=== PATIENT | male | born 1960 | race Caucasian/White ===

== ENCOUNTER 2018-12-03 06:45 | Outpatient (CLI) | payer OTHER | END 2018-12-03 06:46 | disposition critical access hospital (66) | LOC: EMS 06:45 | PROVIDERS: ATTEND Surgery | DX: S28.0XXA Crushed chest, initial encounter (principal); W23.0XXA Caught, crushed, jammed, or pinched between moving objects, initial encounter; Y92.69 Other specified industrial and construction area as the place of occurrence of the external cause; Y99.0 Civilian activity done for income or pay | CPT/HCPCS: A0425; A0427 ==

== ENCOUNTER 2018-12-03 07:02 | Emergency (ER) | payer OTHER ==
[2018-12-03] MEDS ORDERED: SODIUM CHLORIDE 0.9% 1,000 ML IV ONE (07:15)
[2018-12-03 07:18] LABS: BASOPHILS # (AUTO) 0.1 10^3/uL (0.0-0.1); BASOPHILS % (AUTO) 0.4 %; EOSINOPHILS # (AUTO) 1.1 10^3/uL (0.0-0.7); EOSINOPHILS % (AUTO) 3.5 %; HGB - HEMOGLOBIN 16.1 g/dL (14.0-18.0); LYMPHOCYTES # (AUTO) 5.2 10^3/uL (1.5-3.5); LYMPHOCYTES % (AUTO) 16.9 %; MEAN CORPUSCULAR HEMOGLOBIN 32.6 pg (27.0-31.0); MEAN CORPUSCULAR HGB CONC 33.9 g/dL (32.0-36.0); MEAN CORPUSCULAR VOLUME 96.2 fL (80.0-94.0); MEAN PLATELET VOLUME 10.1 fL (7.4-11.4); MONOCYTES # (AUTO) 1.7 10^3/uL (0.0-1.0); MONOCYTES % (AUTO) 5.4 %; NEUTROPHILS # (AUTO) 21.9 10^3/uL (1.5-6.6); PLT - PLATELET COUNT 275 10^3/uL (130-450); RED BLOOD COUNT 4.94 10^6/uL (4.70-6.10); RED CELL DISTRIBUTION WIDTH 11.9 % (12.0-15.0); WHITE BLOOD COUNT 30.8 x10^3/uL (4.8-10.8)
[2018-12-03] MEDS ORDERED: IOVERSOL 320 100 ML VIAL IVP ONE ×2 (07:28→15:51)
[2018-12-03] MEDS ORDERED: fentaNYL 100 MCG/2 ML VIAL IVP STA (07:29)
--- NOTE | 2018-12-03 07:29 | ED Physician Documentation ---
PD HPI MAJOR TRAUMA - Stated complaint Stated Complaint: CRUSH INJURY - Chief complaint Chief Complaint: Trauma Ch/Bk - History obtained from History obtained from: Patient, EMS - History of Present Illness Mechanism of injury: Blow Where injury occurred: Work Timing - onset: Today Injury(ies) location: Chest Quality of pain: Pain Associated symptoms: No: LOC, AMS, Amnesia Symptoms improve with: Meds Worsens with: Movement, Palpation Similar symptoms before: Has not had sx before Recently seen: Not recently seen - Additional information Additional information: 58-year-old male who was on a platform getting ready to clean out the bed of an asphalt truck when the truck began to move. He jumped down off the platform try to get into the truck, and the door of the truck caught his right chest against an I-beam. Review of Systems Constitutional: denies: Fever Eyes: denies: Decreased vision Ears: denies: Ear pain Nose: reports: Congestion Throat: denies: Sore throat Respiratory: reports: Cough (phlem for several weeks) GI: denies: Nausea, Vomiting, Constipation, Diarrhea Musculoskeletal: reports: Back pain, Extremity pain (RUE). denies: Neck pain Neurologic: reports: Numbness (RUE). denies: Generalized weakness, Focal weakness PD PAST MEDICAL HISTORY - Past Medical History Cardiovascular: Hypertension Respiratory: None Endocrine/Autoimmune: Type 2 diabetes GI: None : None HEENT: None Psych: None Musculoskeletal: None Derm: None - Past Surgical History General: Hiatal hernia repair - Present Medications Home Medications: Ambulatory Orders Medication Instructions Recorded Confirmed Home Medications Unobtainable 12/03/18 12/03/18 [HOME MEDICATIONS UNOBTAINABLE] - Allergies Allergies/Adverse Reactions: Allergies Allergy/AdvReac Type Severity Reaction Status Date / Time No Known Drug Allergies Allergy Verified 12/03/18 07:08 - Social History Does the pt smoke?: No Smoking Status: Never smoker PD ED PE NORMAL - Vitals Vital signs reviewed: Yes (tachy and hypertensive mild hypoxia) - General General: Alert and oriented X 3, Well developed/nourished, Other (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 ) - Neck Neck: Supple, no meningeal sign, No bony TTP - Cardiac Cardiac: No murmur, Other (tachy to 100) - Respiratory Respiratory: Other (shallow resp with clear sounds anteriorly bilat) - Abdomen Abdomen: Soft, Non tender, Other (large abdomen) - Back Back: No CVA TTP, No spinal TTP - Derm Derm: Normal color, Warm and dry, No rash - Extremities Extremities: No deformity, No edema - Neuro Neuro: Alert and oriented X 3, electronic tech 2-12 intact, No motor deficit, No sensory deficit, Normal speech Eye Opening: Spontaneous Motor: Obeys Commands Verbal: Oriented GCS Score: 15 - Psych Psych: Normal mood, Normal affect Results - Vitals Vitals: Vital Signs - 24 hr 12/03/18 12/03/18 12/03/18 07:04 07:14 07:31 Temperature 36.5 C Heart Rate 103 H 103 H 101 H Respiratory 24 27 H 24 Rate Blood Pressure 146/105 H 142/93 H 151/83 H O2 Saturation 92 90 L 88 L 12/03/18 12/03/18 12/03/18 07:38 07:44 07:48 Temperature Heart Rate 100 96 100 Respiratory 25 H 26 H 20 Rate Blood Pressure 177/85 H 149/85 H 151/92 H O2 Saturation 95 96 96 12/03/18 12/03/18 12/03/18 08:03 08:18 08:33 Temperature Heart Rate 100 97 107 H Respiratory 25 H 24 27 H Rate Blood Pressure 140/80 H 139/82 H 135/78 H O2 Saturation 94 97 97 Oxygen O2 Source Non-rebreather mask Oxygen Flow Rate 6 - Labs Labs: Laboratory Tests 12/03/18 12/03/18 07:11 07:11 WBC 30.8 H RBC 4.94 Hgb 16.1 Hct 47.5 MCV 96.2 H MCH 32.6 H MCHC 33.9 RDW 11.9 L Plt Count 275 MPV 10.1 Neut # (Auto) 21.9 H Lymph # (Auto) 5.2 H [place] # (Auto) 1.7 H Eos # (Auto) 1.1 H Baso # (Auto) 0.1 Absolute Nucleated RBC 0.00 Nucleated RBC % 0.0 Manual Slide Review Indicated RBC Morph Micro Appear 1+ ANISOCYTOSIS Sodium 138 Potassium 3.8 Chloride 103 Carbon Dioxide 23 Anion Gap 12.0 BUN 19 Creatinine 1.0 Estimated GFR (MDRD) 76 L Glucose 324 H Calcium 8.7 Total Bilirubin 1.5 H AST 51 H ALT 58 Alkaline Phosphatase 51 Total Protein 6.8 Albumin 4.0 Globulin 2.8 Albumin/Globulin Ratio 1.4 Lipase 36 - Rads (name of study) chest Radiology: Prelim report reviewed, EMP read indepedently, See rad report (Impression: 1. Multiple acute lateral right rib fractures. 2 No radiographically apparent pleural effusion or pneumothorax. There is subcutaneous emphysema in the right lateral chest wall. Low lung volumes. 3 There are streaky opacities at the bilateral lung bases, which may be due to lateral atelectasis, contusion, or infiltrate.) Chest CT Radiology: Prelim report reviewed (Impression: 1. Small right hemopneumothorax. 2 Patchy opacities at the right lung base likely represent a combination of pulmonary contusion and atelectasis. 3 There are multiple acute displaced right rib fractures as described above. There are also multiple acute nondisplaced left sided rib fractures, there is no left-sided pleural effusion or pneumothorax), EMP read indepedently, See rad report CT abd/pel Radiology: Prelim report reviewed (Impression: 1. No acute traumatic abnormality in the abdomen or pelvis. No free air or free fluid.[address] report for description of multiple acute bilateral rib fractures and small right hemopneumothorax.), EMP read indepedently, See rad report PD MEDICAL DECISION MAKING - ED course Complexity details: reviewed old records, reviewed results, re-evaluated patient, considered differential, d/w patient, d/w family, d/w oracle database consultant ([facility]) ED course: 58 y/o male with crush injury to the right chest with multiple rib fractures and small pneumo with sub-Q air, fractured scapula and bilateral pulmonary contusions. Trauma team activated patient maintains airway breathing is improved with use of pain medication and pulse and blood pressure are stable. He is currently stable for transport. The [place] [facility] [place] contacted shortly after arrival of the patient and Dr. Rhoda Quinn will accept the patient in transfer. Dr. Herring surgeon here evaluation: provide pain relief for breathing. Consideration for a chest tube with <10% pneumo conservative measures recommended. He has a cough the past several weeks and mild inflammation in the TM's bilat. Departure - Departure Disposition: 02 Transfer Acute Care Hosp Clinical Impression: Fracture of scapula Qualifiers: Encounter type: initial encounter Scapula location: unspecified part of scapula Fracture type: closed Laterality: right Qualified Code(s): S42.101A - Fracture of unspecified part of scapula, right shoulder, initial encounter for closed fracture Closed flail chest Qualifiers: Encounter type: initial encounter Qualified Code(s): S22.5XXA - Flail chest, initial encounter for closed fracture Contusion of chest wall Qualifiers: Encounter type: initial encounter Laterality: right Qualified Code(s): S20.211A - Contusion of right front wall of thorax, initial encounter Traumatic pneumohemothorax Qualifiers: Encounter type: initial encounter Qualified Code(s): S27.2XXA - Traumatic hemopneumothorax, initial encounter Condition: Serious
[2018-12-03 07:35] LABS: RBC MORPHOLOGY (MULTIPLE) 1+ ANISOCYTOSIS (NORMAL)
[2018-12-03 07:36] LABS: ALBUMIN/GLOBULIN RATIO 1.4 (1.0-2.2); BILIRUBIN,TOTAL 1.5 mg/dL (0.2-1.0); CALCIUM 8.7 mg/dL (8.5-10.3); TOTAL PROTEIN 6.8 g/dL (6.7-8.2)
[2018-12-03] MEDS ORDERED: fentaNYL 100 MCG/2 ML VIAL ONE (07:41)
[2018-12-03] MEDS ORDERED: KETOROLAC 30 MG/ML VIAL IVP STA (07:42)
--- NOTE | 2018-12-03 07:43 | XRAY Report ---
Reason: chest pain, injury right chest Procedure Date: 12/03/2018 Accession Number: [id number] / [id number] Procedure: XR - Chest 1 View X-Ray CPT Code: 32369 FULL RESULT: EXAM: CHEST RADIOGRAPHY EXAM DATE: 12/03/2018 07:21 AM. CLINICAL HISTORY: Chest pain, injury right chest. COMPARISON: CHEST W/ 12/03/2018 7:23 AM. TECHNIQUE: 1 view. FINDINGS: Lungs/Pleura: Lung volumes are low. No definite pleural effusion or pneumothorax visualized. There are streaky opacities at bilateral lung bases. Mediastinum: Within exam limitations, the cardiomediastinal contour is normal. There is atherosclerotic calcification of the aortic arch. Other: There are acute mildly displaced rib fractures of the right lateral fourth, fifth, sixth, and seventh ribs. There is subcutaneous emphysema in the right lateral chest wall. IMPRESSION: 1. Multiple acute right lateral rib fractures. 2. No radiographically apparent pleural effusion or pneumothorax. There is subcutaneous emphysema in the right lateral chest wall. 3. Low lung volumes. There are streaky opacities at the bilateral lung bases, which may be due to atelectasis, contusion, or infiltrate. DARVINA The call report notification system was initiated by Dr. Piotr Govea at 07:42 AM on 12/03/2018. ADDENDUM: 12/03/18 07:54 The above call report findings were discussed with Dr. Sotomayor by Dr. Piotr Govea at 07:43 AM on 12/03/2018.
--- NOTE | 2018-12-03 07:59 | CT Report ---
Reason: crush of chest right Procedure Date: 12/03/2018 Accession Number: [id number] / [id number] Procedure: CT - CHEST W CPT Code: FULL RESULT: EXAM: CT CHEST EXAM DATE: 12/03/2018 07:30 AM. CLINICAL HISTORY: Crush of chest right. COMPARISONS: CHEST 1 VIEW 12/03/2018 6:54 AM ABDOMEN/PELVIS W/ 12/03/2018 7:23 AM. TECHNIQUE: Routine helical CT imaging was performed through the chest. IV contrast: 100 cc Optiray 320. Reconstructions: Coronal and sagittal. In accordance with CT protocol optimization, one or more of the following dose reduction techniques were utilized for this exam: automated exposure control, adjustment of mA and/or KV based on patient size, or use of iterative reconstructive technique. FINDINGS: Lungs/Pleura: There is a small right anterior pneumothorax. Pleural separation measures approximately 14 mm near the right lung base (series 4 image 44). There is a small amount of right pleural fluid with density suggestive of blood products. No left-sided pleural effusion or left-sided pneumothorax. There are patchy opacities at the right lung base which likely represent a combination of pulmonary contusion and atelectasis. There is mild dependent atelectasis at the left lung base. Mediastinum: No adenopathy or masses. The heart and great vessels are normal. Coronary artery calcifications are present. There is mild atherosclerotic calcification at the aortic arch. Bones: There are multiple acute displaced right rib fractures. These include right anterior third rib, right lateral fourth rib, right lateral fifth rib, right lateral sixth rib, posterior lateral seventh rib, posterior lateral eighth rib, posterior ninth rib, and posterior lateral 10th rib fractures. There are acute nondisplaced fractures of the left lateral fourth rib, left lateral fifth rib, left lateral sixth rib, left lateral seventh rib and left posterior ninth rib. The other visualized bones appear intact. Visualized Abdomen: Unremarkable. Please see separately reported CT of the abdomen and pelvis for additional evaluation. Other: There is soft tissue gas in the right lateral chest wall. IMPRESSION: 1. Small right hemopneumothorax. 2. Patchy opacities at the right lung base likely represent a combination of pulmonary contusion and atelectasis. 3. There are multiple acute displaced right rib fractures, as described above. 4. There are also multiple acute nondisplaced left-sided rib fractures. There is no left-sided pleural effusion or pneumothorax. RADIA The above call report findings of acute displaced right-sided rib fractures and small right pneumothorax with pleural fluid were discussed with Jacob Sotomayor by Dr. Piotr Govea at 07:43 AM on 12/03/2018.
--- NOTE | 2018-12-03 08:05 | CT Report ---
Reason: crush of right chest Procedure Date: 12/03/2018 Accession Number: [id number] / [id number] Procedure: CT - Abdomen/Pelvis W CPT Code: FULL RESULT: EXAM: CT ABDOMEN AND PELVIS EXAM DATE: 12/03/2018 07:30 AM. CLINICAL HISTORY: Crush injury of right chest. COMPARISONS: CHEST W/ 12/03/2018 7:23 AM CHEST 1 VIEW 12/03/2018 6:54 AM. TECHNIQUE: Routine helical CT imaging was performed through the abdomen and pelvis. IV contrast: 100 cc Optiray 320. Enteric contrast: No. Reconstructions: Coronal and sagittal. In accordance with CT protocol optimization, one or more of the following dose reduction techniques were utilized for this exam: automated exposure control, adjustment of mA and/or KV based on patient size, or use of iterative reconstructive technique. FINDINGS: Lung Bases: As seen on chest CT, there are multiple acute displaced right-sided rib fractures and acute nondisplaced left-sided rib fractures. There is a small amount of right pleural fluid and small right anterior pneumothorax. There are patchy opacities at the bilateral lung bases, right greater than left. Liver: Normal. No masses. No traumatic abnormality. Gallbladder/Bile Ducts: Unremarkable. Spleen: Normal. Pancreas: Normal. Adrenal Glands: Normal. Kidneys: Normal. No masses or hydronephrosis. Peritoneal Cavity/Bowel: Normal. No free fluid, free air or adenopathy. No masses or acute inflammatory process. The appendix is well visualized and normal. Pelvic Organs: Normal. The bladder and visualized pelvic organs are within normal limits. Vasculature: No aneurysms or other significant abnormality. Bones: Please see chest CT report for description of multiple bilateral acute rib fractures. The other visualized bones appear intact. There are mild to moderate degenerative disk changes of the lumbar spine. There are mild degenerative facet changes of the lower lumbar spine. There is grade 1 retrolisthesis of L2 on L3 measuring 4 mm and grade 1 retrolisthesis of L3 on L4 measuring 4 mm. There is probable mild central canal narrowing and moderate bony neural foraminal narrowing at multiple levels in the lumbar spine. Other: There is a small fat-containing left inguinal hernia. IMPRESSION: 1. No acute traumatic abnormality in the abdomen or pelvis. No free air or free fluid. 2. Please see chest CT report for description of multiple acute bilateral rib fractures and small right hemopneumothorax. RADIA
--- NOTE | 2018-12-03 08:11 | CONSULTATION NOTE ---
Referring Provider Name of Referring Provider:: Dr. Jacob Sotomayor Consult Date: 12/03/18 Chief Complaint - Chief Complaint Chief Complaint: Crush injury to chest primarily right, difficulty breathing History of Present Illness - Admitted From Admitted From:: Not admitted in ED - History Obtained From Records Reviewed: Yes History obtained from: Patient and Dr. Sotomyaor Exam Limitations: None - History of Present Illness HPI Comment/Other: This is a very pleasant 58-year-old male who presented to our emergency department emergently after he was crushed between a I-beam and a dump truck. The patient was on a rail when he noticed the dump truck break had not been set and the dump truck was rolling back. The patient attempted to get into the cabin of the truck to set the brake but ended up getting crushed between the door and the I-beam. There is no loss of consciousness. The patient primarily complains of pain when breathing and the inability to take a deep breath because of the pain. He has no abdominal or pelvic complaints. He has some tingling in his right arm and fingers. He is able to move all extremities well and without difficulty. He is able to lift both arms above his head. He does take diabetic medication and blood pressure medication but the exact prescriptions and doses are not available. I believe the diabetic medication is metformin. History - Past Medical History Cardiovascular: reports: Hypertension Respiratory: reports: None Endocrine/Autoimmune: reports: Type 2 diabetes GI: reports: None : reports: None HEENT: reports: None Psych: reports: None Musculoskeletal: reports: None Derm: reports: None MRSA Hx?: No - Past Surgical History General: reports: Hiatal hernia repair Meds/Allgy - Home Medications Home Medications: Ambulatory Orders Medication Instructions Recorded Confirmed Home Medications Unobtainable 12/03/18 12/03/18 [HOME MEDICATIONS UNOBTAINABLE] - Allergies Allergies/Adverse Reactions: Allergies Allergy/AdvReac Type Severity Reaction Status Date / Time No Known Drug Allergies Allergy Verified 12/03/18 07:08 Review of Systems - Constitutional Constitutional: denies: Fatigue, Fever, Chills - Eyes Eyes: denies: Pain - Ears, Nose & Throat Ears, Nose & Throat: denies: Ear pain - Cardiovascular Cariovascular: denies: Irregular heart rate - Respiratory Respiratory: denies: Cough, Sputum production - Gastrointestinal Gastrointestinal: denies: Abdominal pain - Genitourinary Genitourinary: denies: Dysuria - Musculoskeletal Musculoskeletal: reports: Back pain - Integumentary Integumentary: denies: Rash - Neurological Neurological: denies: General weakness, Focal weakness - Psychiatric Psychiatric: denies: Depression, Anxiety Exam - Vital Signs Reviewed Vital Signs: Yes Vital Signs: Vital Signs x48h Temp Pulse Resp BP Pulse Ox 12/03/18 08:03 100 25 H 140/80 H 94 12/03/18 07:48 100 20 151/92 H 96 12/03/18 07:44 96 26 H 149/85 H 96 12/03/18 07:38 100 25 H 177/85 H 95 12/03/18 07:31 101 H 24 151/83 H 88 L 12/03/18 07:14 103 H 27 H 142/93 H 90 L 12/03/18 07:04 36.5 C 103 H 24 146/105 H 92 - Physical Exam General Appearance: positive: Mild distress, Moderate distress Eyes Bilateral: positive: Conjunctivae nml, No scleral icterus ENT: positive: Dry mucous membranes Neck: positive: Trachea midline. negative: Carotid bruit, Tracheal deviation Respiratory: positive: Other (Shallow breathing with pain on the right side of his chest. The pain is located primarily posterior laterally. Crepitus is present.). negative: Chest non-tender, No respiratory distress Cardiovascular: positive: Tachycardia (Secondary to chest pain due to broken ribs.). negative: JVD present, Systolic murmur Abdomen: positive: Non-tender, No organomegaly, No distention, Abnml bowel sounds, Other (Obese.) Skin: positive: Color nml, Diaphoresis, Other (Abrasion to left forearm, dressed . Abrasion to right elbow.) Extremities: positive: Non-tender, Full ROM, Nml appearance Neurologic/Psychiatric: positive: Oriented x3, Motor nml, Mood/affect nml. negative: Sensation nml (Says he has some tingling like when his legs go to sleep in his right arm and hand but has complete sensation to soft and deep touch.) Conclusion/Plan - Diagnosis Diagnosis: Multiple right rib fractures including a flail segment, left rib fracture (at least one nondisplaced) with pulmonary contusion bilaterally. Very small pneumothorax. Very small hemothorax. Broken right scapula. - Plan Plan: As per protocol regarding multiple rib fractures transfer to higher level of care. [facility] is the [facility] recipient. Currently, the pa tieshruthi does not require intubation nor tube thoracostomy but with a pending helicopter flight this may be requested. The patient's symptoms are not due to the very small hemopneumothorax but rather the rib fractures and control of his pain. I expect that pain control will be an issue as well the pulmonary contusion. Fixation of the ribs may be desirable to help with pain and to help with chest wall movement. The plan was discussed with the patient his and I believe his daughter. Over 60 minutes of [id number] time spent with the patient, the majority of which was spent in discussion, coordination of care, and completion of the requisite paperwork - Lab Results Lab results reviewed: Yes Fish Bones: 12/03/18 07:11 12/03/18 07:11 - Diagnostic Imaging Results Diagnostic Imaging Results: positive: Read independently
[2018-12-03 08:34] VITALS: BP 135/78
== END 2018-12-03 08:52 | disposition short-term general hospital (02) ==
LOC: EDUNIT# → ED 07:02
DX: S27.2XXA Traumatic hemopneumothorax, initial encounter (principal); S22.5XXA Flail chest, initial encounter for closed fracture; S42.101A Fracture of unspecified part of scapula, right shoulder, initial encounter for closed fracture; S20.211A Contusion of right front wall of thorax, initial encounter; S27.322A Contusion of lung, bilateral, initial encounter; V85.4XXA Person injured while boarding or alighting from special construction vehicle, initial encounter; Y93.89 Activity, other specified; Y99.0 Civilian activity done for income or pay; I10 Essential (primary) hypertension; E11.9 Type 2 diabetes mellitus without complications
CPT/HCPCS: 36415; 71045; 71260; 74177; 80053; 83690; 85025; 86850; 86900; 86901; 96361; 96374; 96375; 99284; 99285; Q9967

== ENCOUNTER 2019-01-21 10:14 | Outpatient (CLI) | payer OTHER ==
--- NOTE | 2019-01-21 15:02 | XRAY Report ---
Reason: Multi trauma f/u Procedure Date: 01/21/2019 Accession Number: [id number] / [id number] Procedure: XR - Tib/Fib RT CPT Code: Final Report FULL RESULT: EXAM: RIGHT TIBIA/FIBULA RADIOGRAPHY EXAM DATE: 01/21/2019 10:31 AM. CLINICAL HISTORY: Multi trauma f/u. COMPARISON: None. TECHNIQUE: 2 views. FINDINGS: Bones: Normal. No fracture or bone lesion. Joints: Normal alignment of the knee and ankle joints. Degenerative arthritis is noted. Soft Tissues: Mild diffuse soft tissue swelling in the calf. IMPRESSION: None. No acute fracture or dislocation evident in the tibia or fibula. RADIA
== END 2019-01-21 10:15 | disposition home or self-care (01) ==
LOC: DI 10:14
PROVIDERS: ATTEND Family Medicine
DX: S80.11XA Contusion of right lower leg, initial encounter (principal)

== ENCOUNTER 2022-06-11 07:40 | Outpatient (CLI) | payer OTHER ==
--- NOTE | 2022-06-11 09:33 | XRAY Report ---
PROCEDURE: Chest 2 View X-Ray INDICATIONS: SHORTNESS OF BREATH TECHNIQUE: 2 views of the chest were acquired. COMPARISON: None. FINDINGS: Surgical changes and devices: Surgical fusion of the ribs. Lungs and pleura: Trace left pleural effusion. Mediastinum: Mediastinal contours are normal. Heart size is normal. Bones and chest wall: No suspicious bony abnormalities. Soft tissues appear unremarkable. IMPRESSION: Trace left pleural effusion. Reviewed by: Daniel Vargas on 06/11/2022 9:32 AM PDT Approved by: Daniel Vargas on 06/11/2022 9:32 AM PDT Station ID: [id number]
== END 2022-06-11 07:41 | disposition home or self-care (01) ==
LOC: DI 07:40
PROVIDERS: ATTEND Physician Assistant
DX: R60.9 Edema, unspecified (principal); J90 Pleural effusion, not elsewhere classified

== ENCOUNTER 2022-07-04 16:00 | Outpatient (CLI) | payer OTHER | END 2022-07-04 16:01 | disposition home or self-care (01) | LOC: RT 16:00 | PROVIDERS: ATTEND Physician Assistant | DX: R06.02 Shortness of breath (principal); Z87.81 Personal history of (healed) traumatic fracture | CPT/HCPCS: 94010; 94727; 94729 ==

== ENCOUNTER 2022-07-23 12:15 | Emergency (ER) | payer OTHER ==
--- OUTSIDE RECORDS SUMMARY | 2022-07-23 12:55 | EXTERNAL MEDICAL SUMMARY RPT | Continuity of Care Document ---
:1960 Author Organization [facility] Address [address] [place] [address] Phone Care Team Providers Name Role Phone Unavailable Unavailable Unavailable Rafa Solo Md Unavailable Unavailable Sarahy Vidales Ma Unavailable Unavailable Guerda Cole, Kaylin Jackson Unavailable Unavailable Sarahy Vidales Ma Unavailable Unavailable Allergies No information. Encounters No information. Functional Status No information. Immunizations No information. Medications date description facility 2022-07-09 00:00 sodium,potassium,mag sulfates All 2022-07-09 00:00 sodium,potassium,mag sulfates All 2022-07-09 00:00 sodium,potassium,mag sulfates All 2022-07-09 00:00 sodium,potassium,mag sulfates All 2022-07-09 00:00 sodium,potassium,mag sulfates All 2022-07-09 00:00 sodium,potassium,mag sulfates All 2022-07-09 00:00 sodium,potassium,mag sulfates All 2022-07-09 00:00 sodium,potassium,mag sulfates All Problems date description facility 2022-07-08 00:00 Gastroesophageal reflux disease All 2022-07-08 00:00 Diabetes mellitus without mention of com plication, type All II or unspecified type, not stated as un controlled 2022-07-08 00:00 Diabetes mellitus without mention of com plication, type All II or unspecified type, not stated as un controlled 2022-07-08 00:00 Diabetes mellitus without mention of com plication, type All II or unspecified type, not stated as un controlled 2022-07-08 00:00 Diabetes mellitus without mention of com plication, type All II or unspecified type, not stated as un controlled 2022-07-08 00:00 Other and unspecified hyperlipidemia A 2022-07-08 00:00 Other and unspecified hyperlipidemia A 2022-07-08 00:00 Other and unspecified hyperlipidemia A 2022-07-08 00:00 Other and unspecified hyperlipidemia A 2022-07-08 00:00 Low back strain All 2022-07-08 00:00 Type 2 diabetes mellitus All 2022-07-08 00:00 Type 2 diabetes mellitus All 2022-07-08 00:00 Type 2 diabetes mellitus All 2022-07-08 00:00 Type 2 diabetes mellitus All 2022-07-08 00:00 Esophageal reflux All 2022-07-08 00:00 Hyperlipidemia All 2022-07-08 00:00 Hyperlipidemia All 2022-07-08 00:00 Hyperlipidemia All 2022-07-08 00:00 Hyperlipidemia All 2022-07-08 00:00 Hypertensive episode All 2022-07-08 00:00 Other abnormal blood chemistry All 2022-07-08 00:00 Elevated blood pressure reading without diagnosis of All hypertension 2022-07-08 00:00 Hyperglycemia All 2022-07-08 00:00 Lumbar sprain All 2022-07-08 00:00 Bilateral cataracts All 2022-07-08 00:00 Bilateral cataracts All 2022-07-08 00:00 Bilateral cataracts All 2022-07-08 00:00 Bilateral cataracts All 2022-07-08 00:00 Type 2 diabetes mellitus without compli cations All 2022-07-08 00:00 Type 2 diabetes mellitus without compli cations All 2022-07-08 00:00 Type 2 diabetes mellitus without compli cations All 2022-07-08 00:00 Type 2 diabetes mellitus without compli cations All 2022-07-08 00:00 Hyperlipidemia, unspecified All 2022-07-08 00:00 Hyperlipidemia, unspecified All 2022-07-08 00:00 Hyperlipidemia, unspecified All 2022-07-08 00:00 Hyperlipidemia, unspecified All 2022-07-08 00:00 Unspecified cataract All 2022-07-08 00:00 Unspecified cataract All 2022-07-08 00:00 Unspecified cataract All 2022-07-08 00:00 Unspecified cataract All 2022-07-08 00:00 Gastro-esophageal reflux disease withou t esophagitis All 2022-07-08 00:00 Elevated blood-pressure reading, withou t diagnosis of All hypertension 2022-07-08 00:00 Strain of muscle, fascia and tendon of lower back All 2022-07-09 00:00 Gastroesophageal reflux disease All 2022-07-09 00:00 Gastroesophageal reflux disease All 2022-07-09 00:00 Other and unspecified hyperlipidemia A ll 2022-07-09 00:00 Other and unspecified hyperlipidemia A ll 2022-07-09 00:00 Low back strain All 2022-07-09 00:00 Low back strain All 2022-07-09 00:00 Esophageal reflux All 2022-07-09 00:00 Esophageal reflux All 2022-07-09 00:00 Hyperlipidemia All 2022-07-09 00:00 Hyperlipidemia All 2022-07-09 00:00 Hypertensive episode All 2022-07-09 00:00 Hypertensive episode All 2022-07-09 00:00 Other abnormal blood chemistry All 2022-07-09 00:00 Other abnormal blood chemistry All 2022-07-09 00:00 Elevated blood pressure reading without diagnosis of All hypertension 2022-07-09 00:00 Elevated blood pressure reading without diagnosis of All hypertension 2022-07-09 00:00 Hyperglycemia All 2022-07-09 00:00 Hyperglycemia All 2022-07-09 00:00 Lumbar sprain All 2022-07-09 00:00 Lumbar sprain All 2022-07-09 00:00 Gastro-esophageal reflux disease withou t esophagitis All 2022-07-09 00:00 Gastro-esophageal reflux disease withou t esophagitis All 2022-07-09 00:00 Elevated blood-pressure reading, withou t diagnosis of All hypertension 2022-07-09 00:00 Elevated blood-pressure reading, withou t diagnosis of All hypertension 2022-07-09 00:00 Strain of muscle, fascia and tendon of lower back All 2022-07-09 00:00 Strain of muscle, fascia and tendon of lower back All 2022-07-10 00:00 Gastroesophageal reflux disease All 2022-07-10 00:00 Other and unspecified hyperlipidemia A ll 2022-07-10 00:00 Low back strain All 2022-07-10 00:00 Esophageal reflux All 2022-07-10 00:00 Hyperlipidemia All 2022-07-10 00:00 Hypertensive episode All 2022-07-10 00:00 Other abnormal blood chemistry All 2022-07-10 00:00 Elevated blood pressure reading without diagnosis of All hypertension 2022-07-10 00:00 Hyperglycemia All 2022-07-10 00:00 Lumbar sprain All 2022-07-10 00:00 Gastro-esophageal reflux disease withou t esophagitis All 2022-07-10 00:00 Elevated blood-pressure reading, withou t diagnosis of All hypertension 2022-07-10 00:00 Strain of muscle, fascia and tendon of lower back All Procedures date description facility 2022-07-09 00:00 Visit Code Hold All 2022-07-09 00:00 Visit Code Hold All 2022-07-09 00:00 Visit Code Hold All Results/Labs No information. Social History date description facility 2022-07-08 00:00 Former smoker All 2022-07-08 00:00 Former smoker All 2022-07-08 00:00 Former smoker All 2022-07-08 00:00 Former smoker All Vital Signs date measurement value units 2022-07-09 00:00 height_metric 180.34 cm 2022-07-09 00:00 height_standard 71 in
[2022-07-23 15:36] VITALS: BP 142/80
[2022-07-23 16:05] LABS: BASOPHILS # (AUTO) 0.1 10^3/uL (0.0-0.1); BASOPHILS % (AUTO) 0.3 %; EOSINOPHILS % (AUTO) 0.2 %; HCT - HEMATOCRIT 46.5 % (42.0-52.0); HGB - HEMOGLOBIN 15.9 g/dL (14.0-18.0); LYMPHOCYTES # (AUTO) 1.9 10^3/uL (1.5-3.5); MEAN CORPUSCULAR HEMOGLOBIN 31.5 pg (27.0-31.0); MEAN CORPUSCULAR HGB CONC 34.2 g/dL (32.0-36.0); MEAN CORPUSCULAR VOLUME 92.1 fL (80.0-94.0); MEAN PLATELET VOLUME 10.1 fL (7.4-11.4); MONOCYTES # (AUTO) 0.9 10^3/uL (0.0-1.0); MONOCYTES % (AUTO) 6.4 %; NEUTROPHILS # (AUTO) 11.6 10^3/uL (1.5-6.6); NEUTROPHILS % (AUTO) 79.8 %; PLT - PLATELET COUNT 177 10^3/uL (130-450); RED BLOOD COUNT 5.05 10^6/uL (4.70-6.10); RED CELL DISTRIBUTION WIDTH 12.6 % (12.0-15.0); WHITE BLOOD COUNT 14.6 x10^3/uL (4.8-10.8)
--- NOTE | 2022-07-23 16:05 | ED Physician Documentation ---
History of Present Illness - Stated complaint Stated Complaint: RT LEG RED/SWOLLEN - Chief complaint Chief Complaint: Ext Problem - History obtained from History obtained from: Patient - Additonal information Additional information: Patient is a 61-year-old male with a history of diabetes presenting for evaluation of right lower extremity swelling and redness that he noticed yesterday. He reports feeling chills yesterday but that has resolved today. He denies any known injury or trauma or skin breaks.He denies a prior history of cellulitis.He does report a prior history of a DVT when he sustained significant trauma and was at [facility] several years ago. He denies any chest pain or shortness of breath, abdominal pain, vomiting or diarrhea. Review of Systems Constitutional: reports: Chills Cardiac: denies: Chest pain / pressure Respiratory: denies: Dyspnea GI: denies: Abdominal Pain Skin: reports: Rash Musculoskeletal: reports: Extremity swelling Neurologic: denies: Headache PD PAST MEDICAL HISTORY - Past Medical History Cardiovascular: Hypertension Respiratory: Other Endocrine/Autoimmune: Type 2 diabetes GI: None : None HEENT: None Psych: None Musculoskeletal: None Derm: None - Past Surgical History General: Hiatal hernia repair Cardiovascular: Other - Present Medications Home Medications: Ambulatory Orders Medication Instructions Recorded Confirmed Atorvastatin Calcium 40 mg PO DAILY 12/03/18 05/10/21 Losartan Potassium 100 mg PO DAILY 12/03/18 05/10/21 Metformin HCl 1,000 mg PO BID 12/03/18 05/10/21 Insulin Glargine [Lantus Solostar] 65 unit SUBQ DAILY 05/09/21 05/10/21 amLODIPine [Norvasc] 5 mg PO DAILY 05/09/21 05/10/21 hydroCHLOROthiazide [Hydrodiuril] 12.5 mg PO DAILY 05/10/21 05/10/21 Doxycycline Hyclate 100 mg PO BID #14 tab 07/23/22 - Allergies Allergies/Adverse Reactions: Allergies Allergy/AdvReac Type Severity Reaction Status Date / Time No Known Drug Allergies Allergy Verified 07/23/22 12:22 - Social History Does the pt smoke?: No Smoking Status: Never smoker PD ED PE NORMAL - General General: Alert and oriented X 3, No acute distress, Well developed/nourished - HEENT HEENT: Atraumatic - Neck Neck: Supple, no meningeal sign - Cardiac Cardiac: Other (Tachycardic, regular rhythm) - Respiratory Respiratory: No respiratory distress, Clear bilaterally - Abdomen Abdomen: Normal bowel sounds, Soft, Non tender, Non distended - Derm Derm: Other (Erythema to right anterior lower extremity) - Extremities Extremities: No calf tenderness / cord, Other (Redness and swelling to anterior right lower extremity below the knee, Apartments are soft, no fluctuance, no skin breaks, distal pulses intact) - Neuro Neuro: Alert and oriented X 3, No motor deficit, No sensory deficit, Normal speech Results - Vitals Vitals: Vital Signs - 24 hr 07/23/22 07/23/22 07/23/22 12:19 15:35 15:46 Temperature 37.3 C 37.4 C Heart Rate 119 H 108 H 112 H Respiratory 18 12 Rate Blood Pressure 139/76 H 142/80 H O2 Saturation 93 95 Oxygen O2 Source Room air - Labs Labs: Laboratory Tests 07/23/22 07/23/22 07/23/22 15:59 15:59 15:59 WBC 14.6 H RBC 5.05 Hgb 15.9 Hct 46.5 MCV 92.1 MCH 31.5 H MCHC 34.2 RDW 12.6 Plt Count 177 MPV 10.1 Neut # (Auto) 11.6 H Lymph # (Auto) 1.9 Chaves # (Auto) 0.9 Eos # (Auto) 0.0 Baso # (Auto) 0.1 Absolute Nucleated RBC 0.00 Nucleated RBC % 0.0 Sodium 134 L Potassium 3.5 Chloride 95 L Carbon Dioxide 26 Anion Gap 13.0 BUN 18 Creatinine 0.9 Estimated GFR (MDRD) 86 L Glucose 161 H Lactic Acid 1.3 Calcium 9.1 Total Bilirubin 2.2 H AST 23 ALT 26 Alkaline Phosphatase 39 L Total Protein 7.4 Albumin 3.8 Globulin 3.6 Albumin/Globulin Ratio 1.1 PD Medical Decision Making - ED course Complexity details: reviewed results, re-evaluated patient, d/w patient ED course: Patient is a 61-year-old male presenting for evaluation of right lower extremity swelling and redness. He is tachycardic at triage. Labs were obtained including CBC, chemistries, lactic and blood cultures x2 given reports of fever and that he is diabetic along with tachycardia today. Lactic is negative. White count is slightly elevated at 14.Blood cultures are pending. Ultrasound was also obtained to rule out DVT which I reviewed and is negative for signs of a DVT. Suspect that his symptoms are likely related to cellulitis. As patient does not appear septic and that there has not been spread while he has been here I do feel he is appropriate for outpatient management with oral antibiotics.Patient is advised on treatment plan as well as need for close follow-up and concerning symptoms to return for. Departure - Departure Disposition: 01 Home, Self Care Clinical Impression: Cellulitis of right leg Condition: Stable Instructions: ED Infec Skin Cellulitis Follow-Up: JOSE ANDREWS PA-C [Primary Care Provider] - Prescriptions: Doxycycline Hyclate 100 mg PO BID #14 tab Comments: Ultrasound does not show signs of a blood clot. We did obtain labs which shows a slightly increased white blood cell count which could be from an infection. 2 sets of blood cultures were also done which will check for any signs of infection in your bloodstream given your reported fever and chills yesterday. If for any reason these are abnormal we will notify you and direct you back for reevaluation. I would recommend close follow-up with your PCP. If you develop worsening symptoms such as increased redness or swelling despite the use of the antibiotic or fever or any new concerns then please return to the emergency department. I have sent your prescription to [facility] in [place]. Discharge Date/Time: 07/23/22 16:51
[2022-07-23 16:36] LABS: ALBUMIN 3.8 g/dL (3.2-5.5); ALBUMIN/GLOBULIN RATIO 1.1 (1.0-2.2); BILIRUBIN,TOTAL 2.2 mg/dL (0.2-1.0); CALCIUM 9.1 mg/dL (8.5-10.3); CREATININE 0.9 mg/dL (0.6-1.2); POTASSIUM 3.5 mmol/L (3.5-5.0); TOTAL PROTEIN 7.4 g/dL (6.7-8.2)
[2022-07-23] MEDS ORDERED: DOXYCYCLINE 100 MG TABLET PO STA (16:37)
--- NOTE | 2022-07-23 17:02 | Ultrasound Report ---
PROCEDURE: Duplex Ext Veins Right INDICATIONS: swelling/redness TECHNIQUE: Real-time imaging, as well as color and pulse Doppler interrogation, were performed of the lower extr emity deep veins from the inguinal ligament to the popliteal fossa. COMPARISON: None. FINDINGS: The deep veins are normally compressible, and free of intraluminal thrombus. Color and pu lse Doppler demonstrate normal phasic intraluminal flow. There is normal augmentation response to di stal compression maneuver. IMPRESSION: No DVT in the visualized lower extremity. Reviewed by: Daniel Vargas on 07/23/2022 5:01 PM PDT Approved by: Daniel Vargas on 07/23/2022 5:01 PM PDT Station ID: [id number]
== END 2022-07-23 16:51 | disposition home or self-care (01) ==
LOC: ED 12:15
DX: L03.115 Cellulitis of right lower limb (principal); I10 Essential (primary) hypertension; E11.9 Type 2 diabetes mellitus without complications; Z79.4 Long term (current) use of insulin
CPT/HCPCS: 36415; 80053; 83605; 85025; 87040; 93971; 99283; 99284; A9270

== ENCOUNTER 2022-07-24 09:01 | Outpatient (CLI) | payer OTHER | END 2022-07-24 09:02 | disposition home or self-care (01) | LOC: DI 09:01 | PROVIDERS: ATTEND Physician Assistant | DX: R06.02 Shortness of breath (principal); R60.9 Edema, unspecified | CPT/HCPCS: 93306 ==

== ENCOUNTER 2022-08-08 06:31 | Day surgery (SDC) | payer OTHER ==
[2022-08-08] MEDS ORDERED: LACTATED RINGERS 1,000 ML IV ONE ×2 (06:36→08:22)
[2022-08-08] MEDS ORDERED: LIDOCAINE-MPF 2% 5 ML VIAL ONE (07:46)
[2022-08-08] MEDS ORDERED: PROPOFOL 500 MG/50 ML 500 MG/50 ML VIAL ONE (07:46)
--- NOTE | 2022-08-08 07:46 | ANESTHESIA ---
Pre-Anesthesia VS, & Labs - Diagnosis screening - Procedure colonoscopy Vital Signs: Temp Pulse Resp BP Pulse Ox O2 Flow Rate 36 C L 79 16 140/83 H 94 08/08/22 06:38 08/08/22 06:38 08/08/22 06:38 08/08/22 06:38 08/08/22 06:38 Height: 5 ft 10 in Weight (kg): 115 kg Body Mass Index: 36.3 BMI Classification: Obese - NPO >8 hours - Lab Results Current Lab Results: Laboratory Tests 08/08/22 06:53: POC Whole Bld Glucose 118 H Home Medications and Allergies Home Medications: Ambulatory Orders Metoprolol Succinate [Kapspargo Sprinkle] 50 mg PO DAILY 08/07/22 Rosuvastatin Calcium [Crestor] 40 mg PO DAILY 08/07/22 Losartan Potassium 100 mg PO DAILY 12/03/18 Metformin HCl 1,000 mg PO BID 12/03/18 Insulin Glargine [Lantus Solostar] 70 unit SUBQ DAILY 05/09/21 hydroCHLOROthiazide [Hydrodiuril] 50 mg PO DAILY 05/10/21 Metoprolol Succinate [Kapspargo Sprinkle] 50 mg PO DAILY 08/07/22 Rosuvastatin Calcium [Crestor] 40 mg PO DAILY 08/07/22 Allergies/Adverse Reactions: Allergies Allergy/AdvReac Type Severity Reaction Status Date / Time No Known Drug Allergies Allergy Verified 08/07/22 13:41 Anes History & Medical History - Anesthetic History Anesthesia Complications: reports: No previous complications - Medical History Cardiovascular: reports: Hypertension, High cholesterol Pulmonary: reports: Other Gastrointestinal: reports: None Urinary: reports: None Musculoskeletal: reports: None Endocrine/Autoimmune: reports: Type 2 diabetes Skin: reports: None Smoking Status: Never smoker - Surgical History General: reports: Hiatal hernia repair Cardiothoracic: reports: Other Exam General: Alert, Oriented x3 Dental: WNL Mouth Opening: Greater than 4 Fingerbreadths Neck Mobility: Normal Mallampati classification: IV Thyromental Distance: 4-6 cm Respiratory: Lungs clear Cardiovascular: Regular rate Plan Anesthesia Type: Total IV Consent for Procedure(s) Verified and Reviewed: Yes Code Status: Attempt Resuscitation ASA classification: 3-Severe systemic disease Is this case an emergency?: No
--- NOTE | 2022-08-08 09:05 | ANESTHESIA POST OP EVALUATION ---
Anesthesia Post Eval - Post Anesthesia Eval Vitals: Last Vital Signs Temp 36.3 C L 08/08/22 08:22 Pulse 90 08/08/22 08:22 Resp 14 08/08/22 08:22 BP 91/57 L 08/08/22 08:22 Pulse Ox 93 08/08/22 08:22 O2 Flow Rate CV Function Including HR & BP: Stable Pain Control: Satisfactory Nausea & Vomiting: Negative Mental Status: Baseline Respiratory Status: Airway Patent Hydration Status: Satisfactory Anesthesia Complications: None
[2022-08-08 09:27] VITALS: BP 121/78
== END 2022-08-08 06:32 | disposition home or self-care (01) ==
LOC: SDS 06:31
PROVIDERS: ATTEND Surgery
DX: Z12.11 Encounter for screening for malignant neoplasm of colon (principal); Z80.0 Family history of malignant neoplasm of digestive organs; I10 Essential (primary) hypertension; E11.9 Type 2 diabetes mellitus without complications; E66.9 Obesity, unspecified; Z68.36 Body mass index [BMI] 36.0-36.9, adult; Z79.4 Long term (current) use of insulin; Z79.84 Long term (current) use of oral hypoglycemic drugs
CPT/HCPCS: 45378; J7120

== ENCOUNTER 2022-09-17 10:41 | Outpatient (CLI) | payer OTHER ==
--- NOTE | 2022-09-17 11:10 | CARDIAC PROCEDURE NOTE ---
Stress Test Report Service Date: 09/17/22 Service Time: 11:00 Ordering Provider: Nirali Mcgarry PA-C Indication for Test: Assess for an ischemic contribution to reduced exertional tolerance. Significant Medical History: Aguilar is referred for a stand-alone ETT today, to evaluate progressive reduction in exercise tolerance with exertional dyspnea. He has multiple risk factors for coronary artery disease as elaborated below, but his history is probably most notable for a severe crushing chest injury that occurred in 2019, at which time he says that a 42,000 pound trailer fell on his chest, requiring airlift to [facility] an extended ICU stay and partial right lower lobe resection. He had a protracted recovery with marked decrease in his prior exertional tolerance (he notes chopping wood for pre-accident stress relief that he could no longer do). He reports that his exertional tolerance gradually improved moderately, but has then worsened over the past 6 to 8 months. Sometimes he is able to climb a flight of stairs, but other times shortness of breath prevents this. He is able to walk his property, that does include some hills, but at a measured pace. Some of his limitation is by hip and leg pain that he attributes to sciatica (though a vascular etiology may be more elements). He denies experiencing chest discomfort with these episodes. He reports that during his [facility] hospitalization he was treated for "severe h eart enlargement" but a repeat echocardiogram done in the past few months has been notable only for mild left ventricular hypertrophy and trace mitral and tricuspid regurgitation. Cardiac Risk Factors: Positive for hypertension (treated for ~15 years), diabetes (treated for 7-8 years), hyperlipidemia and family history of heart disease (3 sibs with unknown cardiac issues, likely at least 1 or 2 with CAD); no history of cigarette smoking ever. Type of Stress Test: Exercise Treadmill Test (ETT) Procedure: -Exercise Treadmill Test- After signing informed consent, the patient performed treadmill exercise using a Modified Pedro protocol. The patient exercised for 10 minutes 26 seconds and achieved a peak heart rate of 152 (96 percent predicted maximum heart rate for age), and an estimated workload of 6.4 METS. The test was terminated primarily due to right leg pain, though he was significantly tired and short of breath. Resting heart rate: 100 Peak heart rate: 152 Tachycardic at rest but with normal HR response to exercise. Resting BP: 127/67 Peak BP: 216/86 Normal increase of systolic BP and abnormal increase in diastolic BP with exercise. Rhythm during exercise: Sinus rhythm throughout with a single ventricular triplet during stage 4 not captured on 12 lead tracing. Symptoms: As above; no early severe dyspnea and no chest discomfort whatsoever. Might have been able to walk longer if not for RLE pain. EKG at rest showed sinus tachycardia, otherwise within normal limits. EKG at peak stress showed ST depression of 1.0 mm in leads aVF and V6, borderline positive for ischemia. In Recovery HR decrease was abnormally prolonged. No imaging was ordered with this stress test. I, Asher Webster MD, was present throughout this treadmill stress study and supervised it in its entirety. Summary: 1) Exercise tolerance probably about average for age and sex as evidenced by KIRTI of -22% on the modified Pedro scale (though might be somewhat abnormal if extrapolated to the standard Pedro protocol). 2) Abnormal resting EKG due to rate, but with interpretable ST segments. 3) Adequate level of exercise was achieved on this treadmill stress test. 4) Abnormal diastolic BP response and normal systolic BP response to exercise. 5) Borderline ischemic changes by EKG criteria were seen at peak stress. 6) No imaging was ordered with this test. Conclusions and Recommendations: 1) Aguilar was able to exercise to target heart rate with a robust SBP increase. 2) He did not develop marked early dyspnea (nor any chest discomfort) and perhaps could have walked a longer if leg pain were not present. 3) However I remain concerned that he may have subtle coronary insufficiency based on subtle ST depression and in view of his overall adverse risk profile. We discussed 3 options that are not necessarily mutually exclusive: 1) repeat stress testing with imaging (e.g. stress echocardiogram or stress nuclear study); 2) work hard on weight loss and evaluate for sleep apnea (given that the latter is probably present and treatment might improve his symptoms) and pursue further stress imaging only if symptoms fail to improve; and/or 3) refer to Cardiology for specialty level evaluation. 3) After the study was completed I spoke with his referring provider to review these options, which she will discuss further with the patient.
== END 2022-09-17 10:42 | disposition home or self-care (01) ==
LOC: DI 10:41
PROVIDERS: ATTEND Physician Assistant
DX: R06.09 Other forms of dyspnea (principal); I10 Essential (primary) hypertension; E11.9 Type 2 diabetes mellitus without complications; E78.5 Hyperlipidemia, unspecified; Z82.49 Family history of ischemic heart disease and other diseases of the circulatory system
CPT/HCPCS: 93016; 93017; 93018

== ENCOUNTER 2023-01-21 08:13 | Outpatient (CLI) | payer OTHER ==
[2023-01-21 12:18] LABS: ESTIMATED AVERAGE GLUCOSE 246 mg/dL (70-100); HEMOGLOBIN A1c% 10.2 % (4.27-6.07)
[2023-01-21 12:26] LABS: ALBUMIN 4.3 g/dL (3.2-5.5); ALBUMIN/GLOBULIN RATIO 1.8 (1.0-2.2); ALKALINE PHOSPHATASE 53 IU/L (42-121); ALT ALANINE AMINOTRANSFERASE 17 IU/L (10-60); AST ASPARTATE AMINOTRANSFERASE 11 IU/L (10-42); BILIRUBIN,TOTAL 1.2 mg/dL (0.2-1.0); BUN - BLOOD UREA NITROGEN 13 mg/dL (6-20); CALCIUM 9.2 mg/dL (8.5-10.3); CARBON DIOXIDE - CO2 35 mmol/L (21-32); CHLORIDE 98 mmol/L (101-111); CHOL/HDL RATIO 3.1 (<5.0); CHOLESTEROL 93 mg/dL; GFR - MDRD 75 (>89); GLUCOSE 214 mg/dL (74-104); HDL CHOLESTEROL 30 mg/dL; LDL CHOLESTEROL,CALCULATED 49 mg/dL; LDL/HDL RATIO 1.6 (<3.6); POTASSIUM 3.7 mmol/L (3.5-4.5); SODIUM 137 mmol/L (135-145); TOTAL PROTEIN 6.7 g/dL (6.4-8.9); TRIGLYCERIDES 68 mg/dL (48-352); VLDL CHOLESTEROL 14 mg/dL
[2023-01-21 12:33] LABS: CREATININE,URINE 141.5 mg/dL; MICROALBUM/CREATININE RATIO,UR 40.3 ug/mg (<30.0); MICROALBUMIN,URINE 5.7 mg/dL
[2023-01-21 12:39] LABS: THYROID STIMULATING HORMONE 2.68 uIU/mL (0.34-5.60)
== END 2023-01-21 08:14 | disposition home or self-care (01) ==
LOC: LAB.N 08:13
PROVIDERS: ATTEND Family Medicine
DX: E78.5 Hyperlipidemia, unspecified (principal); E11.9 Type 2 diabetes mellitus without complications
CPT/HCPCS: 36415; 80053; 80061; 82043; 82570; 83036; 83721; 83880; 84443

== ENCOUNTER 2023-04-23 10:14 | Outpatient (CLI) | payer OTHER ==
[2023-04-23 12:53] LABS: CALCIUM 9.5 mg/dL (8.5-10.3); POTASSIUM 3.6 mmol/L (3.5-4.5)
[2023-04-23 14:06] LABS: ESTIMATED AVERAGE GLUCOSE 217 mg/dL (70-100); HEMOGLOBIN A1c% 9.2 % (4.27-6.07)
== END 2023-04-23 10:15 | disposition home or self-care (01) ==
LOC: LAB.N 10:14
PROVIDERS: ATTEND Family Medicine
DX: I10 Essential (primary) hypertension (principal); E11.9 Type 2 diabetes mellitus without complications
CPT/HCPCS: 36415; 80048; 83036; 84153

== ENCOUNTER 2023-09-19 07:25 | Outpatient (CLI) | payer OTHER ==
[2023-09-19 12:12] LABS: CALCIUM 9.7 mg/dL (8.5-10.3); CREATININE 0.7 mg/dL (0.6-1.3); POTASSIUM 3.2 mmol/L (3.5-4.5)
[2023-09-19 12:25] LABS: ESTIMATED AVERAGE GLUCOSE 174 mg/dL (70-100); HEMOGLOBIN A1c% 7.7 % (4.27-6.07)
== END 2023-09-19 07:26 | disposition home or self-care (01) ==
LOC: LAB.N 07:25
PROVIDERS: ATTEND Family Medicine
DX: E11.9 Type 2 diabetes mellitus without complications (principal)
CPT/HCPCS: 36415; 80048; 83036

== ENCOUNTER 2023-12-19 07:49 | Outpatient (CLI) | payer OTHER ==
[2023-12-19 12:50] LABS: BUN - BLOOD UREA NITROGEN 15 mg/dL (6-20); CALCIUM 9.8 mg/dL (8.5-10.3); CARBON DIOXIDE - CO2 29 mmol/L (21-32); CHLORIDE 100 mmol/L (101-111); CHOLESTEROL 91 mg/dL; CREATININE 0.7 mg/dL (0.6-1.3); GFR - MDRD 114 (>89); GLUCOSE 161 mg/dL (74-104); HDL CHOLESTEROL 30 mg/dL; LDL CHOLESTEROL,CALCULATED 46 mg/dL; LDL/HDL RATIO 1.5 (<3.6); POTASSIUM 3.7 mmol/L (3.5-4.5); SODIUM 136 mmol/L (135-145); TRIGLYCERIDES 73 mg/dL; VLDL CHOLESTEROL 15 mg/dL
[2023-12-19 13:07] LABS: ESTIMATED AVERAGE GLUCOSE 186 mg/dL (70-100); HEMOGLOBIN A1c% 8.1 % (4.27-6.07)
== END 2023-12-19 07:50 | disposition home or self-care (01) ==
LOC: LAB.N 07:49
PROVIDERS: ATTEND Family Medicine
DX: E11.65 Type 2 diabetes mellitus with hyperglycemia (principal)
CPT/HCPCS: 36415; 80048; 80061; 83036; 83721